=== PATIENT | male | born 1990 | race Caucasian/White ===

== ENCOUNTER 2018-05-09 03:30 | Emergency (ER) | payer OTHER ==
[~2018-05-09] VITALS: Ht 188 cm; Wt 90.7 kg
[2018-05-09] MEDS ORDERED: KETO10TA2 PO (05:22)
[2018-05-09] MEDS ORDERED: ZITHROMAX500 MG PO (05:22)
[2018-05-09] MEDS ORDERED: ACETAMINOPHEN500 M1 (05:25)
== END 2018-05-09 05:35 | disposition home or self-care (01) ==
LOC: ER 03:30
DX: J35.01 Chronic tonsillitis (principal)